=== PATIENT | female | born 1955 | race Caucasian/White ===

== ENCOUNTER 2019-06-19 05:37 | Inpatient (IN) | payer MEDICARE ==
[2019-06-19] MEDS ORDERED: Ibuprofen 800 MG TAB ONE (05:52)
[2019-06-19 06:15] LABS: Bilirubin Negative (Negative); Blood, Urine Negative (Negative); Clarity Clear (Clear); Glucose, Urine (Dipstick) Normal (Negative); Leukocyte Negative Leu/uL (Negative); Nitrite Negative (Negative); Protein, Urine (Dipstick) Negative (Neg-Trace); Urobilinogen Normal mg/dL (Less than 2)
[2019-06-19 06:17] LABS: Mean Corpuscular HGB CONC 33.1 g/dL (32.0-36.0); Mean Corpuscular Hemoglobin 29.7 pg (27.0-31.0); Mean Corpuscular Volume 89.9 fL (78.0-98.0); RBC Distribution Width 12.5 % (11.5-14.5); Red Blood Cell (RBC) Count 4.37 mill/uL (4.20-5.40); White Blood Cell (WBC) Count 9.3 thou/uL (4.8-10.8)
[2019-06-19] MEDS ORDERED: cefTRIAXone\\ROCEPHIN 2 GM VIAL ONE (06:36)
[2019-06-19 06:37] LABS: ALT (SGPT) 37 U/L (8-55); AST (SGOT) 33 U/L (5-34); Albumin 4.1 g/dL (3.4-4.8); Alkaline Phosphatase 108 U/L (40-110); Anion Gap 15 mmol/L (10-20); BUN (Urea Nitrogen) 18 mg/dL (9.8-20.1); Bilirubin, Total 0.5 mg/dL (0.2-1.2); Calc. Creatinine Clearance 0 mL/min (70-130); Calcium 8.6 mg/dL (7.8-10.44); Carbon Dioxide 23 mmol/L (23-31); Chloride 106 mmol/L (98-107); Estimated GFR-MDRD 63; Globulin 2.6 g/dL (2.4-3.5); Glucose 133 mg/dL (80-115); Lipase 10 U/L (8-78); Potassium 4.4 mmol/L (3.5-5.1); Protein, Total 6.7 g/dL (6.0-8.3); Sodium 140 mmol/L (136-145)
[2019-06-19 06:40] LABS: #Lymphocytes 0.7 thou/uL (1.20-3.40); #Monocytes 0.3 thou/uL (0.11-0.59); #Neutrophils 8.2 thou/uL (1.40-6.50); %Eosinophils 0.4 % (0.0-10.0); %Lymphocytes 7.9 % (21.0-51.0); %Monocytes 3.7 % (0.0-10.0); Large Platelets SLIGHT; MDiff Complete? YES; Mean Platelet Volume 12.1 fL (7.4-10.4); Platelet Count 129 thou/uL (130-400); Platelet Morphology Comment Appears Adequate; RBC Morphology Normal
[2019-06-19] MEDS ORDERED: Azithromycin 500 MG VIAL ONE (07:07)
[2019-06-19 09:21] VITALS: BMI 40.7
[2019-06-19 09:29] LABS: Lactic Acid 2.3 mmol/L (0.5-2.2)
--- NOTE | 2019-06-19 09:46 | RAD ---
SINGLE VIEW CHEST: HISTORY: Fever. Dyspnea. COMPARISON: None. FINDINGS: A single view of the chest shows a normal sized cardiomediastinal silhouette. Air space opacity is se en in the left lung, consistent with pneumonia. No pleural effusion is seen. IMPRESSION: Left sided pneumonia. POS: [facility]
[2019-06-19] MEDS ORDERED: Guaifenesin DM 100-10/5 ML UDCUP PO PRN (11:05)
[2019-06-19] MEDS ORDERED: Sodium Chloride 0.9% 1,000 ML IV SCH (11:05)
[2019-06-19] MEDS ORDERED: Bisacodyl 10 MG SUPP PR PRN (11:05)
[2019-06-19] MEDS ORDERED: HYDROcodone/Acetaminophen 5/325 mg Tablet PO PRN (11:05)
[2019-06-19] MEDS ORDERED: Ondansetron PF 4 MG/2 ML Vial IVP PRN (11:05)
[2019-06-19] MEDS: Levofloxacin 750 mg/D5W 500 MG in Premix Bag 1 BAG IVPB SCH (12:10)
[2019-06-19] MEDS: Acetaminophen 325 MG TAB PO PRN ×2 (12:18→20:23)
--- NOTE | 2019-06-19 14:23 | HP ---
REASON FOR ADMISSION: Sepsis, pneumonia, acute respiratory failure with hypoxia. HISTORY OF PRESENTING ILLNESS: The patient gives history of developing shortness of breath from 1 in the morning. She developed shaking chills and was feeling very cold. She called her sister, and her sister called EMS and the patient was brought here. No cough or expectoration. She had a temperature of 103.1 degrees on arrival here with a pulse of 130 per minute. The patient has known history of rheumatoid arthritis and takes immunotherapy for the same. No complaints of urinary frequency or urgency. The patient in fact states that she had brought her sister for laparoscopic cholecystectomy yesterday and was feeling well. PAST MEDICAL AND SURGICAL HISTORY: History of rheumatoid arthritis for last 8 years, history of uterine cancer, hysterectomy, hypothyroidism, GERD, asthma. CURRENT MEDICATIONS: The patient is on; 1. Xeljanz daily. 2. Ultram 50 mg daily. 3. Motrin 600 mg daily. 4. Levothyroxine daily. 5. Prilosec 20 mg daily. 6. Singulair 10 mg daily. ALLERGIES: PENICILLIN. PERSONAL HISTORY: Quit smoking 11 years back prior to which has smoked 2 packs a day for 20 years or so. Does not abuse alcohol or drugs. Lives with her . FAMILY HISTORY: Her mother is still living and is 89 years old. Father in his 50s with history of CVA and was alcoholic as well. REVIEW OF SYSTEMS: CONSTITUTIONAL: Negative for weight loss or gain, ability to conduct usual activities. SKIN: Negative for rash, itching. EYES: Negative for double vision, pain. ENT/MOUTH: Negative for nose bleeding, neck stiffness, pain, tenderness. CARDIOVASCULAR: Negative for palpitations, dyspnea on exertion, orthopnea. RESPIRATORY: Negative for shortness of breath, wheezing, cough, hemoptysis, fever or night sweats. GASTROINTESTINAL: Negative for poor appetite, abdominal pain, heartburn, nausea , vomiting, constipation, or diarrhea. GENITOURINARY: Negative for urgency, frequency, dysuria, nocturia. MUSCULOSKELETAL: Negative for pain, swelling. NEUROLOGIC/PSYCHIATRIC: Negative for anxiety, depression. ALLERGY/IMMUNOLOGIC: Negative for skin rash, bleeding tendency. PHYSICAL EXAMINATION: GENERAL: The patient is a 63-year-old female who is currently not in any acute distress. VITAL SIGNS: Blood pressure 146/94, pulse 130 per minute, respiratory rate 20 per minute, temperature 103.1 degrees Fahrenheit, saturating 86% on room air and 94 % on 2 L nasal cannula. NECK: Supple. No elevated JVD. HEENT: Eyes; extraocular muscles intact. Pupils reacting to light. Oral cavity; mucous membranes are dry. No exudates or congestion. CARDIOVASCULAR SYSTEM: S1 and S2 heard. Regular rhythm. RESPIRATORY SYSTEM: Air entry 1+ bilateral. Scattered rhonchi plus no rales or wheezes. ABDOMEN: Soft. Bowel sounds heard. No tenderness, rigidity, or guarding. EXTREMITIES: No peripheral edema or calf tenderness. VASCULAR SYSTEM: Peripheral pulses 2+ bilateral. No ischemic ulcerations or gangrene. CENTRAL NERVOUS SYSTEM: No gross focal deficits noted. The patient is alert, awake, oriented well. PSYCHIATRIC SYSTEM: The patient's mood is euthymic. No hallucinations or delusions. LABORATORY DATA: Chest x-ray done shows left lower lobe pneumonia. Influenza A and B antigens are negative. White count of 9, H and H of 13 and 39, platelet count 129 with 88% neutrophils. EKG done shows sinus tach at 129 beats per minute. BUN 18, creatinine 0.9, serum glucose 133. Lactic acid 3.1. LFTs are within normal limits. BNP is 35. Lipase is 10. UA is negative for any infection. CLINICAL IMPRESSION AND PLAN: The patient will be admitted to medical floor for sepsis, acute respiratory failure with hypoxia, left lung pneumonia. The patient is immunosuppressed with history of rheumatoid arthritis and being on DMARD medication. We will place her on Levaquin 500 mg IV daily, DuoNeb q.6 hourly, and gentle hydration with normal saline at 100 mL/hour for a total of 1 to 2 L. She is currently hemodynamically stable. We will continue her rheumatoid arthritis medication including Xeljanz, Ultram, Motrin, levothyroxine, Prilosec, and Singulair as before. We will continue to closely monitor her on medical floor. CODE STATUS: Discussed with the patient and she is a full code. Power of traffic law attorney is her . Job ID: [id number] MTDD
[2019-06-19] MEDS ORDERED: traMADol HCl 50 MG TAB PO SCH (15:00)
[2019-06-19] MEDS ORDERED: Ibuprofen 600 MG TAB PO SCH (15:00)
[2019-06-19] MEDS: Famotidine 20 MG TAB PO SCH (20:19)
[2019-06-19] MEDS: Senokot S 8.6-50 MG TAB PO PRN (20:23)
[2019-06-20 05:15] LABS: #Eosinphils 0.1 thou/uL (0.0-0.7); #Monocytes 0.9 thou/uL (0.11-0.59); %Basophils 0.4 % (0.0-1.0); %Eosinophils 0.6 % (0.0-10.0); %Monocytes 6.7 % (0.0-10.0); %Neutrophils 84.3 % (42.0-75.0); Hemoglobin 10.1 g/dL (12.0-16.0); Mean Corpuscular HGB CONC 32.5 g/dL (32.0-36.0); Mean Corpuscular Hemoglobin 30.1 pg (27.0-31.0); Mean Corpuscular Volume 92.6 fL (78.0-98.0); Platelet Count 102 thou/uL (130-400); RBC Distribution Width 12.6 % (11.5-14.5); Red Blood Cell (RBC) Count 3.35 mill/uL (4.20-5.40); White Blood Cell (WBC) Count 13.1 thou/uL (4.8-10.8)
[2019-06-20 05:22] LABS: Anion Gap 10 mmol/L (10-20); BUN (Urea Nitrogen) 16 mg/dL (9.8-20.1); Calc. Creatinine Clearance 110 mL/min (70-130); Calcium 8.3 mg/dL (7.8-10.44); Carbon Dioxide 24 mmol/L (23-31); Chloride 108 mmol/L (98-107); Estimated GFR-MDRD 76; Glucose 111 mg/dL (80-115); Potassium 4.1 mmol/L (3.5-5.1); Sodium 138 mmol/L (136-145)
[2019-06-20] MEDS: Ibuprofen 600 MG TAB PO SCH (07:39)
[2019-06-20] MEDS: traMADol HCl 50 MG TAB PO SCH (07:40)
[2019-06-20] MEDS: Famotidine 20 MG TAB PO SCH ×2 (07:42→20:33)
[2019-06-20] MEDS: Enoxaparin Sodium 40 MG/0.4 ML SYRINGE SC SCH (07:43)
[2019-06-20] MEDS ORDERED: Levothyroxine Sodium 88 MCG TAB PO SCH (09:00)
[2019-06-20] MEDS: Levofloxacin 750 mg/D5W 500 MG in Premix Bag 1 BAG IVPB SCH (12:16)
--- NOTE | 2019-06-20 12:33 | PDOC.HOSPP ---
- Subjective Encounter Date: 06/20/19 Encounter Time: 11:20 Subjective: has started to bring up sputum from early this am no sob, is sitting in chair, at bedside is from [facility] and visiting here to take care of her sister who had lap alyson. - Objective Vital Signs & Weight: Vital Signs (12 hours) Temp Pulse Resp BP BP Pulse Ox 06/20/19 11:30 98.7 F 105 H 18 123/77 93 L 06/20/19 08:00 94 L 06/20/19 07:48 97.9 F 99 18 114/69 94 L 06/20/19 07:31 98.6 F 87 18 108/70 92 L 06/20/19 07:04 85 14 94 L 06/20/19 04:37 98.3 F 87 20 109/71 92 L Weight Weight 208 lb 9 oz I&O: 06/19/19 06/20/19 06/21/19 06:59 06:59 06:59 Intake Total 2600 Balance 2600 Result Diagrams: 06/20/19 04:34 06/20/19 04:34 Hospitalist ROS - Medication Medications: Active Medications Generic Name Dose Route Start Last Admin Trade Name Freq PRN Reason Stop Dose Admin Acetaminophen 650 mg 06/19/19 11:05 06/19/19 20:23 Tylenol PO 650 mg Q4H PRN Administration Headache/Fever/Mild Pain (1-3) Albuterol/Ipratropium 3 ml 06/19/19 13:00 06/20/19 07:04 Duoneb NEB 3 ml [id number] RUTH Administration Enoxaparin Sodium 40 mg 06/20/19 09:00 06/20/19 07:43 Lovenox SC 40 mg 0900 RUTH Administration Famotidine 20 mg 06/19/19 21:00 06/20/19 07:42 Pepcid PO 20 mg BID RUTH Administration Levofloxacin 500 mg/ Device 100 mls @ 100 mls/hr 06/19/19 12:00 06/20/19 12: 16 IVPB 100 mls Q24HR RUTH Administration Ibuprofen 600 mg 06/20/19 09:00 06/20/19 07:39 Motrin PO 600 mg DAILY RUTH Administration Senna/Docusate Sodium 2 tab 06/19/19 11:05 06/19/19 20:23 Senokot S PO 2 tab BID PRN Administration Constipation Sodium Chloride 10 ml 06/19/19 21:00 06/20/19 07:43 Flush - Normal Saline IVF 10 ml Q12HR RUTH Administration Tramadol HCl 50 mg 06/20/19 09:00 06/20/19 07:40 Ultram PO 50 mg DAILY RUTH Administration - Exam General Appearance: awake alert Eye: PERRL, anicteric sclera ENT: no oropharyngeal lesions, moist mucosa Neck: supple, no JVD Heart: RRR, no murmur Respiratory: no wheezes, no rales, rhonchi Gastrointestinal: soft, non-tender, non-distended, normal bowel sounds Extremities: no cyanosis, no edema Neurological: cranial nerve grossly intact, no focal deficits Psychiatric: normal affect, A&O x 3 Hosp A/P (1) Sepsis Code(s): A41.9 - SEPSIS, UNSPECIFIED ORGANISM Status: Resolved (2) PNA (pneumonia) Code(s): J18.9 - PNEUMONIA, UNSPECIFIED ORGANISM Status: Acute Qualifiers: Laterality: left Lung location: lower lobe of lung (3) Rheumatoid arthritis Code(s): M06.9 - RHEUMATOID ARTHRITIS, UNSPECIFIED Status: Chronic Qualifiers: Rheumatoid arthritis location: multiple sites (4) Obesity Code(s): E66.9 - OBESITY, UNSPECIFIED Status: Chronic Qualifiers: Obesity classification: adult class 3 (BMI >= 40) Body mass index: BMI 40.0 -44.9 (5) Hypothyroidism Code(s): E03.9 - HYPOTHYROIDISM, UNSPECIFIED Status: Chronic Qualifiers: Hypothyroidism type: unspecified Qualified Code(s): E03.9 - Hypothyroidism , unspecified - Plan hemostable is on levaquin, nebs, synthroid pt is immunosuppresed with h/o RA and is on tyrosine kinase inhibitor. d/w will see her. likely dc plan in am if stable
--- NOTE | 2019-06-20 18:57 | CON ---
DATE OF CONSULTATION: 06/20/2019 HISTORY OF PRESENT ILLNESS: Ms. Acosta is a pleasant 63-year-old female, who presented with febrile illness with a mild cough. She was found to have an infiltrate on chest x-ray, was admitted for pneumonia and says she is feeling much better. She had shaking chills with this as well. Has a tachycardia with her temperature elevation as one would expect. PAST MEDICAL HISTORY: Remarkable for: 1. Rheumatoid arthritis. 2. Status post hysterectomy for uterine cancer. 3. Hypothyroidism. 4. Asthma. 5. Reflux disease. MEDICATIONS: Prior to admission include Xeljanz. SOCIAL HISTORY: She is a former smoker, two packs a day for 20 years. She does not drink. ALLERGIES: SHE REPORTS ALLERGIES TO PENICILLIN. FAMILY HISTORY: Positive for COPD. Her mother is 89 and is seen by Dr. Schroeder. There is a vascular disease history. REVIEW OF SYSTEMS: 10-point review of systems completed, otherwise negative. PHYSICAL EXAMINATION: GENERAL: She looks actually quite well. VITAL SIGNS: She is afebrile, heart rate in the 90s, respiratory rates in the teens, oximetry is 94% on room air, and blood pressure 114/69. HEENT: Pupils are equal. Sclerae are anicteric. NECK: Supple. LUNGS: Clear. HEART: Regular rhythm. ABDOMEN: Soft and nontender. EXTREMITIES: Without clubbing, cyanosis, or edema. NEURO: Nonfocal. LABORATORY DATA: White count 13.1, hemoglobin 10.1, and platelets 102,000. Electrolytes are normal. IMPRESSION AND PLAN: 1. Pneumonia. 2. Rheumatoid arthritis on immunosuppressive drugs. I believe this is simply a community-acquired pneumonia. She probably can be switched to enteral antimicrobial therapy and maybe even discharge tomorrow. She lives in [place]. She said she did want to come back up here for followup chest x-ray in a month. This is a 50 minute consult with greater than 50% of time spent on unit coordinating care. Job ID: [id number] [facility]
[2019-06-20] MEDS: Acetaminophen 325 MG TAB PO PRN (20:36)
[2019-06-21] MEDS: Acetaminophen 325 MG TAB PO PRN ×2 (04:24→20:05)
[2019-06-21] MEDS: Levothyroxine Sodium 88 MCG TAB PO SCH (05:52)
[2019-06-21] MEDS: Enoxaparin Sodium 40 MG/0.4 ML SYRINGE SC SCH (08:23)
[2019-06-21] MEDS: traMADol HCl 50 MG TAB PO SCH (08:24)
[2019-06-21] MEDS: Ibuprofen 600 MG TAB PO SCH (08:24)
[2019-06-21] MEDS: Famotidine 20 MG TAB PO SCH ×2 (08:24→20:05)
[2019-06-21] MEDS: Levofloxacin 750 mg/D5W 500 MG in Premix Bag 1 BAG IVPB SCH (11:27)
--- NOTE | 2019-06-21 12:18 | PDOC.HOSPP ---
- Subjective Encounter Date: 06/21/19 Encounter Time: 10:30 Subjective: feels a bit weak, had temp of 101 this am sputum is more brownish now - Objective Vital Signs & Weight: Vital Signs (12 hours) Temp Pulse Resp BP BP Pulse Ox 06/21/19 08:24 94 L 06/21/19 07:42 100 16 100 06/21/19 07:32 99.6 F 107 H 16 143/80 H 94 L 06/21/19 05:50 99.6 F 06/21/19 03:49 101.3 F H 114 H 20 150/83 H 93 L 06/21/19 02:13 118 H 14 93 L Weight Weight 208 lb 9 oz I&O: 06/20/19 06/21/19 06/22/19 06:59 06:59 06:59 Intake Total 2600 1710 Balance 2600 1710 Result Diagrams: 06/20/19 04:34 06/20/19 04:34 Hospitalist ROS - Medication Medications: Active Medications Generic Name Dose Route Start Last Admin Trade Name Freq PRN Reason Stop Dose Admin Acetaminophen 650 mg 06/19/19 11:05 06/21/19 04:24 Tylenol PO 650 mg Q4H PRN Administration Headache/Fever/Mild Pain (1-3) Albuterol/Ipratropium 3 ml 06/19/19 13:00 06/21/19 07:42 Duoneb NEB 3 ml [id number] RUTH Administration Enoxaparin Sodium 40 mg 06/20/19 09:00 06/21/19 08:23 Lovenox SC 40 mg 0900 RUTH Administration Famotidine 20 mg 06/19/19 21:00 06/21/19 08:24 Pepcid PO 20 mg BID RUTH Administration Levofloxacin 500 mg/ Device 100 mls @ 100 mls/hr 06/19/19 12:00 06/21/19 11: 27 IVPB 100 mls Q24HR RUTH Administration Ibuprofen 600 mg 06/20/19 09:00 06/21/19 08:24 Motrin PO 600 mg DAILY RUTH Administration Levothyroxine Sodium 88 mcg 06/21/19 06:00 06/21/19 05:52 Synthroid PO 88 mcg 0600 RUTH Administration Senna/Docusate Sodium 2 tab 06/19/19 11:05 06/19/19 20:23 Senokot S PO 2 tab BID PRN Administration Constipation Sodium Chloride 10 ml 06/19/19 21:00 06/21/19 08:25 Flush - Normal Saline IVF 10 ml Q12HR RUTH Administration Tramadol HCl 50 mg 06/20/19 09:00 06/21/19 08:24 Ultram PO 50 mg DAILY RUTH Administration - Exam General Appearance: awake alert Eye: PERRL, anicteric sclera ENT: no oropharyngeal lesions, moist mucosa Neck: supple, no JVD Heart: RRR, no murmur Respiratory: no wheezes, no rales, rhonchi Gastrointestinal: soft, non-tender, non-distended, normal bowel sounds Extremities: no cyanosis, no edema Neurological: cranial nerve grossly intact, no focal deficits Psychiatric: normal affect, A&O x 3 Hosp A/P (1) Sepsis Code(s): A41.9 - SEPSIS, UNSPECIFIED ORGANISM Status: Acute Qualifiers: Sepsis type: sepsis due to unspecified organism (2) PNA (pneumonia) Code(s): J18.9 - PNEUMONIA, UNSPECIFIED ORGANISM Status: Acute Qualifiers: Laterality: left Lung location: lower lobe of lung (3) Rheumatoid arthritis Code(s): M06.9 - RHEUMATOID ARTHRITIS, UNSPECIFIED Status: Chronic Qualifiers: Rheumatoid arthritis location: multiple sites (4) Obesity Code(s): E66.9 - OBESITY, UNSPECIFIED Status: Chronic Qualifiers: Obesity classification: adult class 3 (BMI >= 40) Body mass index: BMI 40.0 -44.9 (5) Hypothyroidism Code(s): E03.9 - HYPOTHYROIDISM, UNSPECIFIED Status: Chronic Qualifiers: Hypothyroidism type: unspecified Qualified Code(s): E03.9 - Hypothyroidism , unspecified - Plan had temp of 101 early this am. is on levaquin, nebs, synthroid pt is immunosuppresed with h/o RA and is on tyrosine kinase inhibitor. likely dc plan in am if stable is ambulating on floor and eating well.
--- NOTE | 2019-06-21 12:29 | PRG ---
DATE OF SERVICE: 06/21/2019 SUBJECTIVE: Minerva Acosta had a temperature spiked to 101 last night. She is afebrile now. OBJECTIVE: VITAL SIGNS: Heart rate is 100, respiratory rate 16, oximetry is 94% on room air. LUNGS: Clear. HEART: Regular rhythm. ABDOMEN: Soft. IMPRESSION: 1. Pneumonia, community-acquired. 2. Arthritis, on immunosuppressive therapy. She remains on IV Levaquin. Continue current therapy at this point in time. I have encouraged her to get up and move around more. Temperature elevation could be in theory secondary to atelectasis. We will continue to follow. Job ID: [id number]
[2019-06-22] MEDS: Acetaminophen 325 MG TAB PO PRN (05:03)
[2019-06-22] MEDS: Senokot S 8.6-50 MG TAB PO PRN (05:03)
[2019-06-22] MEDS: Levothyroxine Sodium 88 MCG TAB PO SCH (05:03)
[2019-06-22] MEDS: Ibuprofen 600 MG TAB PO SCH (08:00)
[2019-06-22] MEDS: Famotidine 20 MG TAB PO SCH (08:00)
[2019-06-22] MEDS: Enoxaparin Sodium 40 MG/0.4 ML SYRINGE SC SCH (08:00)
[2019-06-22] MEDS: traMADol HCl 50 MG TAB PO SCH (08:00)
--- NOTE | 2019-06-22 15:12 | PDOC.HOSPP ---
- Subjective Encounter Date: 06/22/19 Encounter Time: 11:00 Subjective: breathing better, has sinus drainage cough with brownish sputum - Objective Vital Signs & Weight: Vital Signs (12 hours) Temp Pulse Resp BP BP BP Pulse Ox 06/22/19 13:40 89 16 100 06/22/19 11:52 97.9 F 96 18 121/83 96 06/22/19 08:08 111 H 16 99 06/22/19 07:55 96 06/22/19 07:22 99.1 F 107 H 18 137/90 96 06/22/19 04:00 100.3 F H 101 H 20 136/92 H 96 Weight Admit Weight 208 lb 9 oz Weight 208 lb 9 oz I&O: 06/21/19 06/22/19 06/23/19 06:59 06:59 06:59 Intake Total 1710 Balance 1710 Result Diagrams: 06/20/19 04:34 06/20/19 04:34 Hospitalist ROS - Medication Medications: Active Medications Generic Name Dose Route Start Last Admin Trade Name Freq PRN Reason Stop Dose Admin Acetaminophen 650 mg 06/19/19 11:05 06/22/19 05:03 Tylenol PO 650 mg Q4H PRN Administration Headache/Fever/Mild Pain (1-3) Albuterol/Ipratropium 3 ml 06/19/19 13:00 06/22/19 13:40 Duoneb NEB 3 ml [id number] RUTH Administration Enoxaparin Sodium 40 mg 06/20/19 09:00 06/22/19 08:00 Lovenox SC 40 mg 0900 RUTH Administration Famotidine 20 mg 06/19/19 21:00 06/22/19 08:00 Pepcid PO 20 mg BID RUTH Administration Levofloxacin 500 mg/ Device 100 mls @ 100 mls/hr 06/22/19 12:00 06/22/19 11: 14 IVPB 100 mls 1200 RUTH Administration Ibuprofen 600 mg 06/20/19 09:00 06/22/19 08:00 Motrin PO 600 mg DAILY RUTH Administration Levothyroxine Sodium 88 mcg 06/21/19 06:00 06/22/19 05:03 Synthroid PO 88 mcg 0600 RUTH Administration Senna/Docusate Sodium 2 tab 06/19/19 11:05 06/22/19 05:03 Senokot S PO 2 tab BID PRN Administration Constipation Sodium Chloride 10 ml 06/19/19 21:00 06/22/19 08:01 Flush - Normal Saline IVF 10 ml Q12HR RUTH Administration Tramadol HCl 50 mg 06/20/19 09:00 06/22/19 08:00 Ultram PO 50 mg DAILY RUTH Administration - Exam General Appearance: awake alert Eye: PERRL, anicteric sclera ENT: no oropharyngeal lesions, moist mucosa Neck: supple, no JVD Heart: RRR, no murmur Respiratory: no wheezes, no rales Gastrointestinal: soft, non-tender, non-distended, normal bowel sounds Extremities: no cyanosis, no edema Neurological: cranial nerve grossly intact, no weakness Psychiatric: normal affect, A&O x 3 Hosp A/P (1) Sepsis Code(s): A41.9 - SEPSIS, UNSPECIFIED ORGANISM Status: Acute Qualifiers: Sepsis type: sepsis due to unspecified organism (2) PNA (pneumonia) Code(s): J18.9 - PNEUMONIA, UNSPECIFIED ORGANISM Status: Acute Qualifiers: Laterality: left Lung location: lower lobe of lung (3) Rheumatoid arthritis Code(s): M06.9 - RHEUMATOID ARTHRITIS, UNSPECIFIED Status: Chronic Qualifiers: Rheumatoid arthritis location: multiple sites (4) Obesity Code(s): E66.9 - OBESITY, UNSPECIFIED Status: Chronic Qualifiers: Obesity classification: adult class 3 (BMI >= 40) Body mass index: BMI 40.0 -44.9 (5) Hypothyroidism Code(s): E03.9 - HYPOTHYROIDISM, UNSPECIFIED Status: Chronic Qualifiers: Hypothyroidism type: unspecified Qualified Code(s): E03.9 - Hypothyroidism , unspecified - Plan had temp of 100 this am. is on levaquin, nebs, synthroid pt is immunosuppresed with h/o RA and is on tyrosine kinase inhibitor. likely dc plan in am if stable is ambulating on floor and eating well.
--- NOTE | 2019-06-22 17:07 | DIS ---
DATE OF ADMISSION: 06/19/2019 DATE OF DISCHARGE: 06/22/2019 DISCHARGE DISPOSITION: Home. PRIMARY DISCHARGE DIAGNOSES: 1. Left lung pneumonia. 2. Sepsis, resolved. 3. History of rheumatoid arthritis, on immunotherapy. 4. Obesity. 5. Hypothyroidism. PROCEDURES DONE DURING HOSPITALIZATION: The patient has had chest x-ray done, which showed left lung pneumonia. Blood cultures x2, no growth. Influenza A and B antigens were negative. Respiratory cultures grew moderate normal respiratory evette. Hemoglobin and hematocrit of 10 and 31, platelet count 102 with 84% neutrophils. BUN 16, creatinine 0.7. DISCHARGE MEDICATIONS: 1. Levothyroxine 88 mcg p.o. daily. 2. Protonix 40 mg p.o. daily. 3. Ultram p.r.n. for pain. 4. Motrin p.r.n. for pain. 5. Levaquin 500 mg p.o. daily for another 7 days. 6. Albuterol inhaler q.6 hourly p.r.n. DISCHARGE PLAN: The patient to follow up with Dr. Estevez in 3 weeks with a followup chest x-ray. She needs to follow up with her primary care physician in [place] in 1 week. BRIEF COURSE DURING HOSPITALIZATION: The patient initially came in with complaints of shortness of breath, shaking chills and fever. She was found to have had temperature of 103 on arrival here, and chest x-ray revealed left lung pneumonia. The patient was on Xeljanz, tyrosine kinase inhibitor for a history of rheumatoid arthritis and was immunosuppressed. In view of this history, the patient was admitted to medical floor. She was on broad-spectrum IV antibiotic along with nebulizations. She has done remarkably well during her stay here. She was evaluated by Dr. Estevez for Pulmonology as well. Prior to discharge, she was ambulating and eating well. Her temperatures are slowly breaking. The last 24 hours, she has had a temperature of 99 to 100. She is hemodynamically stable and has been cleared for discharge by Dr. Estevez. She needs to have a followup chest x-ray in 3 to [address] Estevez. Please see a [id number] documentation for the day of discharge on [employer]. Job ID: [id number]
[2019-06-22 17:13] VITALS: BP 150/87; TEMP 97.8
--- NOTE | 2019-06-23 04:41 | PQF ---
HEATHER STEIN VINAYA KUMAR MD [id number] CLINICAL DOCUMENTATION CLARIFICATION FORM: POST DISCHARGE Addendum to original discharge summary date: ____ Late entry note date: __ DATE:06/23/2019 ATTN: Aziza Rodríguez Please exercise your independent, professional judgment in responding to the clarification form. Clinical indicators are provided on the bottom of this form for your review Please check appropriate box(s) to clarify if the following diagnosis has been ruled in or ruled out: Acute Respiratory Failure with Hypoxia [ x ] Ruled in diagnosis [ ] Continue to treat [ x ] Resolved [ ] Ruled out diagnosis [ ] Cannot rule out diagnosis [ ] Other diagnosis [ ] Unable to determine In addition, please specify: Present on Admission (POA): [ x ] Yes [ ] No [ ] Unable to determine For continuity of documentation, please document condition throughout progress notes and discharge summary. Thank You. CLINICAL INDICATORS - SIGNS / SYMPTOMS / LABS H&P p2 06/19 Dr Rizo The pt admitted to medical floor for sepsis, acute respiratory failure with hypoxia and left lung pneumonia Vital signs 06/19 BP 146/94, Pulse 130, Resp 20, Temp 103.1, O2 Saturating 86% on room air H&P p1 06/19 Dr Rizo the pt gives history of developing shortness of breath from 1 in the morning. H&P p1 06/19 Dr Rizo She developed shaking chills and was feeling very cold. No cough or expectoration. Temp of 103.1 on arrival and pulse of 130 per min RISK FACTORS H&P p1 06/19 63 year old Female H&P p1 06/19 Sepsis H&P p1 06/19 Pneumonia H&P p1 06/19 Asthma H&P p1 06/19 Quit smoking 11 years ago PN p4 06/20 Obesity TREATMENTS MAR 2/15 DuoNeb 3ml Neb JUL 04 IV Zithromax 500mg JUL 04 IV Rocephin 2gm JUL 04 IV Levofloxacin 500mg Respiratory Panel 06/19 Oxygen 2L Pulmonology consult 06/20 Renato Malhotra Collected 06/19 Chest Xray (This form is maintained as a part of the permanent medical record) 2014 [employer]. All Rights Reserved [email or web address]
== END 2019-06-22 18:03 | disposition home or self-care (01) | DRG 871 ==
LOC: ERS 05:37 → T4-B 06:35
PROVIDERS: ADMIT Internal Medicine; ATTEND Internal Medicine
DX: A41.9 Sepsis, unspecified organism (principal); J18.9 Pneumonia, unspecified organism; J96.01 Acute respiratory failure with hypoxia; Z68.41 Body mass index [BMI] 40.0-44.9, adult; M06.9 Rheumatoid arthritis, unspecified; E03.9 Hypothyroidism, unspecified; E66.9 Obesity, unspecified; K21.9 Gastro-esophageal reflux disease without esophagitis; J45.909 Unspecified asthma, uncomplicated; Z88.0 Allergy status to penicillin; Z85.42 Personal history of malignant neoplasm of other parts of uterus; Z90.710 Acquired absence of both cervix and uterus; Z79.899 Other long term (current) drug therapy; Z79.890 Hormone replacement therapy; Z87.891 Personal history of nicotine dependence
CPT/HCPCS: 36415; 71045; 80048; 80053; 81003; 83605; 83690; 83880; 84484; 85025; 87040; 87070; 87205; 87804; 93005; 94640; 96361; 96365; 96375; J0456; J0696; J1650; J1956; J7620